=== PATIENT | male | born 1935 | race Caucasian/White ===

== ENCOUNTER 2018-02-15 16:16 | Emergency (ER) | payer MEDICARE ==
[~2018-02-15] VITALS: Ht 188 cm; Wt 100.0 kg
[~2018-02-15 16:16] MED LIST: ASPI-4 PO; CELE200C PO; CEPH500C5 PO; METO-384 PO
[2018-02-15 16:20] VITALS: BP 115/77
[2018-02-15] MEDS ORDERED: ibuprofen tablet 400 MG TABLET PO ONE (18:55)
[2018-02-15] MEDS ORDERED: acetaminophen 325mg tablet PO ONE (18:55)
== END 2018-02-15 19:27 | disposition home or self-care (01) ==
LOC: ER 16:16
DX: S42.292A Other displaced fracture of upper end of left humerus, initial encounter for closed fracture (principal); I10 Essential (primary) hypertension; G89.29 Other chronic pain; Z98.890 Other specified postprocedural states; Z90.49 Acquired absence of other specified parts of digestive tract; Z60.2 Problems related to living alone; Z79.82 Long term (current) use of aspirin; Z79.899 Other long term (current) drug therapy; W01.0XXA Fall on same level from slipping, tripping and stumbling without subsequent striking against object, initial encounter; Y93.89 Activity, other specified; Y92.89 Other specified places as the place of occurrence of the external cause; Y99.8 Other external cause status
CPT/HCPCS: 73030; 99284; A4565

== ENCOUNTER 2024-11-26 10:49 | Emergency (ER) | payer MEDICARE, MEDICAID ==
[~2024-11-26] VITALS: Ht 188 cm; Wt 113.0 kg
[~2024-11-26 10:49] MED LIST changes: -ASPI-4 PO; -CELE200C PO; -CEPH500C5 PO; +FLO0.4C PO; +LOSA-416 PO
[2024-11-26 11:07] VITALS: TEMP 98
[2024-11-26 12:41] LABS: BASOPHILS # (AUTO) 0.1 X10'3 (0-0.2); BASOPHILS % (AUTO) 0.5 % (0-1); EOSINOPHILS # (AUTO) 0.3 X10'3 (0-0.9); EOSINOPHILS % (AUTO) 2.4 % (0-6); HEMATOCRIT 45.4 % (42.0-52.0); HEMOGLOBIN 14.8 g/dl (14.0-17.9); LYMPHOCYTES # (AUTO) 2.4 X10'3 (1.1-4.8); LYMPHOCYTES % (AUTO) 17.6 % (21-51); MEAN CORPUSCULAR HEMOGLOBIN 30.8 PG (27.0-31.0); MEAN CORPUSCULAR HGB CONC 32.6 g/dL (33.0-36.5); MEAN CORPUSCULAR VOLUME 94.4 FL (78-98); MEAN PLATELET VOLUME 7.4 FL (7.4-10.4); MONOCYTES # (AUTO) 1.5 X10'3 (0-0.9); MONOCYTES % (AUTO) 11.3 % (2-12); NEUTROPHILS # (AUTO) 9.2 X10'3 (1.8-7.7); NEUTROPHILS % (AUTO) 68.2 % (42-75); PLATELET COUNT 237 X10'3 (140-440); RED BLOOD COUNT 4.81 X10'6 (4.70-6.10); RED CELL DISTRIBUTION WIDTH 15.1 % (11.5-14.5); WHITE BLOOD COUNT 13.5 X10'3 (4.5-11.0)
[2024-11-26 13:30] LABS: ALBUMIN 3.3 G/DL (3.4-5.0); ANION GAP 4 (8-16); BLOOD UREA NITROGEN 24 MG/DL (7-18); BUN/CREATININE RATIO 17.5 (10.0-20.0); CALCIUM 9.1 MG/DL (8.5-10.1); CHLORIDE 103 MMOL/L (99-107); CREATININE 1.37 MG/DL (0.60-1.10); GLUCOSE 87 MG/DL (70-104); PRO BRAIN NATRIURETIC PEPTIDE 105 PG/ML (0-450); SODIUM 139 MMOL/L (135-145); TOTAL CARBON DIOXIDE 32.4 MMOL/L (24-32); eCRCL 44 ML/MIN; eGFR 49 ML/MIN
[2024-11-26 13:31] LABS: POTASSIUM 5.3 MMOL/L (3.5-5.1)
[2024-11-26] MEDS: furosemide 10 MG/1 ML 10ml inj IV ONE (14:00)
[2024-11-26] MEDS ORDERED: DOXY-462 PO (14:01)
[2024-11-26 14:06] VITALS: BP 133/74; PULSE 72; RESP 16; O2SAT 96
== END 2024-11-26 14:17 | disposition home or self-care (01) ==
LOC: ER 10:51
DX: R60.0 Localized edema (principal); L03.115 Cellulitis of right lower limb; L03.116 Cellulitis of left lower limb; I25.10 Atherosclerotic heart disease of native coronary artery without angina pectoris; I10 Essential (primary) hypertension; G89.29 Other chronic pain; M54.9 Dorsalgia, unspecified; Z90.49 Acquired absence of other specified parts of digestive tract; Z86.718 Personal history of other venous thrombosis and embolism; Z79.899 Other long term (current) drug therapy; Z60.2 Problems related to living alone
CPT/HCPCS: 36415; 71045; 80048; 83880; 84484; 85025; 93005; 93970; 96374; 99285; J1940